=== PATIENT | female | born 1945 | race Two or more races ===

== ENCOUNTER 2025-04-16 15:06 | Emergency (ER) | payer OTHER ==
[~2025-04-16] VITALS: Ht 154.9 cm; Wt 61.3 kg
--- NOTE | 2025-04-16 16:27 | ED.PDOC ---
Musculoskeletal HPI Comments This is a 80 year old female ANETTE presenting to the ED with chief complaint of right ankle injury. Patient reports that when walking out of her home, she had accidentally twisted her right ankle, causing her to fall on it. Patient relays that she is unable to bear weight now and her right ankle was splinted by EMS upon arrival. Patient denies any numbness, weakness, tingling, or further injury. Chief Complaint: Lower Extremity Time Seen by MD: 16:24 Reviewed Notes: Nurses Notes, Hose Finisher Notes, Medications, Allergies Allergies: Coded Allergies: Iodine (Verified Allergy, Unknown, 04/16/25) Information Source: Patient, Emergency Med Personnel Mode of Arrival: EMS Location: Right Extremity Location: Ankle Timing: Hours Prehospital treatment: None Severity: Moderate Able to Move Extremity: No Bear Weight: No Pain: Moderate Mechanism: Twisting Circumstances: Fall Onset of Symptoms: After Trauma Symptoms: Swelling, Pain DVT Risk Factors: NONE Last Tetanus: Unknown Past Medical History PAST MEDICAL HISTORY: CAD Surgical History (Other): Mitral valve repair THERAPIST SPEECH History: Denies all THERAPIST SPEECH Hx Family History Family History: Reviewed,noncontributory to illness Social History Smoker: Non-Smoker Alcohol: Denies ETOH Use Drugs: Denies Drug Use Lives In: Home Constitutional: denies: chills, diaphoresis, fatigue, fever, malaise, sweats, weakness, others EENTM: denies: blurred vision, double vision, ear bleeding, ear discharge, ear drainage, ear pain, ear ringing, eye pain, eye redness, hearing loss, mouth pain, mouth swelling, nasal discharge, nose bleeding, nose congestion, nose pain, photophobia, tearing, throat pain, throat swelling, voice changes, others Respiratory: denies: cough, hemoptysis, orthopnea, SOB at rest, shortness of breath, SOB with excertion, stridor, wheezing, others Cardiovascular: denies: chest pain, dizzy spells, diaphoresis, Dyspnea on exertion, edema, irregular heart beat, left arm pain, lightheadedness, palpitations, PND, syncope, others Gastrointestinal: denies: abdomen distended, abdominal pain, blood streaked bowels, constipated, diarrhea, dysphagia, difficulty swallowing, hematemesis, melena, nausea, poor appetite, poor fluid intake, rectal bleeding, rectal pain, vomiting, others Genitourinary: denies: abnormal vagina bleeding, burning, dyspareunia, dysuria, flank pain, frequency, hematuria, incontinence, pain, , vagina discharge, urgency, others Neurological: denies: dizziness, fainting, headache, left sided numbness, left sided weakness, numbness, paresthesia, pre-existing deficit, right sided numbness, right sided weakness, seizure, speech problems, tingling, tremors, weakness, others Musculoskeletal: reports: others (right ankle pain); denies: back pain, gout, joint pain, joint swelling, muscle pain, muscle stiffness, neck pain Integumetry: denies: bruises, change in color, change in hair/nails, dryness, laceration, lesions, lumps, rash, wounds, others Allergic/Immunocompromised: denies: Difficulty Healing, Frequent Infections, Hives, Itching, others Hematologic/Lymphatic: denies: anemia, blood clots, easy bleeding, easy bruising, swollen glands, others Endocrine: denies: excessive hunger, excessive sweating, excessive thirst, excessive urination, flushing, intolerance to cold, intolerance to heat, unexplained weight gain, unexplained weight loss, others Psychiatric: denies: anxiety, bipolar disorder, depression, hopeless, panic disorder, schizophrenia, sleepless, suicidal, others All Other Systems: Reviewed and Negative Physical Exam General Appearance: Moderate Distress, Normal HEENT: Normal ENT Inspection, Pharynx Normal, TMs Normal Neck: Full Range of Motion, Non-Tender, Normal, Normal Inspection Respiratory: Chest Non-Tender, Lungs Clear, No Accessory Muscle Use, No Respiratory Distress, Normal Breath Sounds Cardiovascular: No Edema, No JVD, No Murmur, No Gallop, Normal Peripheral Pulses, Regular Rate/Rhythm Breast Exam: Deferred Gastrointestinal: No Organomegaly, Non Tender, No Pulsatile Mass, Normal Bowel Sounds, Soft Genitalia: Deferred Pelvic: Deferred Rectal: Deferred Extremities: Decreased range of motion (Right lower extremity with), No calf tenderness, Normal capillary refill, Normal inspection, Non-tender, No pedal edema Musculoskeletal : Apperance: Normal Neurologic: Alert, ferry terminal agent II-XII nml as Tested, No Motor Deficits, Normal Affect, Normal Mood, No Sensory Deficits Cerebellar Function: NOT DONE Reflexes: NOT DONE Skin: Dry, Normal Color, Warm Peripheral Pulses: 3+ Radial (R), 3+ Radial (L) Lymphatic: No Adenopathy Was a procedure done? Was a procedure done?: No Differential Diagnosis EXT Differential Diagnosis: Fracture, Sprain, Contusion, Strain X-Ray, Labs, Meds, VS Vital Signs Date Time Temp Pulse Resp B/P (MAP) Pulse Ox O2 Delivery O2 Flow Rate FiO2 04/16/25 15:08 97.4 86 16 123/74 97 97.4 Patient alert. Status post twist injury. Vitals stable. Answering all questions pain X-ray reviewed does show minor fracture without displacement of the fibula. Placed a splint. Has good pulses. Explained to the patient. Was told to follow up with her primary care physician. Was told to come back there is any problem. Time of 1ST Reevaluation: 17:23 Reevaluation 1ST: Unchanged Patient Education/Counseling: Diagnosis, Treatment Family Education/Counseling: No Family Present Departure 1 Departure Time of Disposition: 17:20 Impression: Primary Impression: Ankle fracture Qualified Codes: S82.891A - Other fracture of right lower leg, initial encounter for closed fracture Disposition: 01 HOME / SELF CARE / HOMELESS Condition: Good e-Prescriptions Hydrocodone-Acetaminophen (Hydrocodone Bitartrate/AC 5-325 mg) 1 Tab Tab 1 TAB PO DAILY for 5 Days, #5 TAB Prov: GENE ORELLANA MD 04/16/25 Discharged With: Self Critical Care Note Critical Care Time?: No Stability Stability form required: No Heart Score Heart Score: Heart Score Response (Comments) Value History N/A 0 EKG N/A 0 Age N/A 0 Risk Factors N/A 0 Troponin N/A 0 Total 0 I personally scribed for GENE ORELLANA MD ([email or web address]) on 04/16/25 at 16:27. Electronically submitted by Richard Chacko ([email or web address]). GENE ORELLANA MD Apr 16, 2025 16:27
[2025-04-16] MEDS ORDERED: HYDR-4902 PO (17:22)
--- NOTE | 2025-04-16 17:48 | DVH ---
CLINICAL INDICATION: fall TECHNIQUE: XY R ANKLE 3 VIEW COMPARISON: None FINDINGS/IMPRESSION: : Trimalleolar fracture. Mildly displaced and comminuted distal fibular fracture. Mildly displaced posterior malleolus fracture with intra-articular extension into the tibiotalar joint. Mildly displaced distal medial malleolus Fracture. Ankle mortise remains intact. Soft tissue swelling about the right ankle. Calcified athero sclerosis.
[2025-04-16] MEDS: HYDROcodone-ACET 5/325MG TAB PO ONE (18:52)
[2025-04-16 18:55] VITALS: BP 132/61; PULSE 84; RESP 16; TEMP 98; O2SAT 98
== END 2025-04-16 20:03 | disposition home or self-care (01) ==
LOC: EDBD 15:06 → ER 15:06
DX: S82.51XA Displaced fracture of medial malleolus of right tibia, initial encounter for closed fracture (principal); I25.10 Atherosclerotic heart disease of native coronary artery without angina pectoris; Z88.8 Allergy status to other drugs, medicaments and biological substances; X50.1XXA Overexertion from prolonged static or awkward postures, initial encounter; Y93.01 Activity, walking, marching and hiking; Y92.89 Other specified places as the place of occurrence of the external cause; Y99.8 Other external cause status
CPT/HCPCS: 29125; 29515; 73610